=== PATIENT | male | born 1960 | race Caucasian/White ===

== ENCOUNTER 2017-10-05 01:15 | Inpatient (IN) | payer BC, OTHER ==
[2017-10-05] VITALS (8 sets, daily range): BP systolic 110–137; BP diastolic 71–89; PULSE 49–66; TEMP 36.5–36.8; O2SAT 93–96; Ht 180.3 cm; Wt 99.9 kg
[~2017-10-05] VITALS: Ht 180.3 cm; Wt 99.9 kg
[2017-10-05] MEDS ORDERED: ALUMINUM/MAGNESIUM SUSP 30 ML UDC PO STA (01:47)
[2017-10-05] MEDS ORDERED: LIDOCAINE HCL 2% VISC SOLN 20 ML UDC PO STA (01:47)
[2017-10-05] MEDS ORDERED: LORAZEPAM 2 MG/ML 1 ML VIAL IV STA (01:47)
[2017-10-05 02:07] LABS: BASO % 0.6 %; BASO ABS # 0.04 K/uL (0-0.2); EOS % 2.1 %; EOS ABS # 0.15 K/uL (0-0.5); HEMOGLOBIN 16.4 g/dL (14.0-18.0); IG# 0.01 K/uL (0.00-0.02); LYMPH % 30.7 %; LYMPH ABS # 2.15 K/uL (1.2-3.4); MEAN CELL VOLUME 95.3 fL (80-100); MEAN CORPUSCULAR HEMOGLOBIN 33.3 pg (25-34); MEAN CORPUSCULAR HGB CONC 34.9 g/dl (32-36); MEAN PLATELET VOLUME 11.2 fL (7.4-10.4); NEUT % 56.5 %; NEUT ABS # 3.95 K/uL (1.4-6.5); PLATELET COUNT 192 K/uL (130-400); RED CELL DISTRIBUTION WIDTH CV 14.2 % (11.5-14.5); RED CELL DISTRIBUTION WIDTH SD 48.9 fL (36.4-46.3)
--- NOTE | 2017-10-05 02:28 | EMERGENCY ROOM VISIT NOTE ---
History Report prepared by Christo: Tila Santamaria Under the Supervision of: Dr. Karon Bsuh D.O. First contact with patient: 01:31 Chief Complaint: SHORTNESS OF BREATH Stated Complaint: SHORTNESS OF BREATH-INSPIRATION DIFFICULTY History of Present Illness The patient is a 57 year old male who presents to the Emergency Room with complaints of persistent difficulty breathing that began tonight. The patient states that he woke up in the middle of the night, noting that he felt like he was suffocating and short of breath. He denies any chest pain. His states that she is a nurse and that she noticed an irregular heart beat. The patient states that he was recently diagnosed with PAC's during a routine visit. He considers himself a caffeine addict, noting that he did not have an abnormal amount of caffeine today. The patient states he had some alcohol, noting the last dose was about an hour before he went to bed. He reports that he does not feel stressed or overwhelmed. The patient notes a history of esophageal reflux and cervical fusion. He denies taking aspirin or being a smoker. Source of History: patient Onset: tonight Position: other (global) Quality: other (difficulty breathing) Timing: other (persistent) Associated Symptoms: + SOB Note: Associated symptoms include: felt like he was suffocating. Review of Systems See HPI for pertinent positives & negatives. A total of 10 systems reviewed and were otherwise negative. Past Medical & Surgical Medical Problems: (1) GERD (gastroesophageal reflux disease) (2) Low testosterone (3) Lumbar stenosis (4) NSTEMI (non-ST elevated myocardial infarction) Surgical Problems: (1) Previous back surgery Family History Diabetes mellitus Heart disease Hypertension Social History Smoking Status: Never Smoker Smokeless Tobacco Use: No Alcohol Use: occasionally Drug Use: none Marital Status: Housing Status: lives with family Occupation Status: employed Current/Historical Medications Scheduled Cetirizine Hcl (Zyrtec), 1 TAB PO DAILY Esomeprazole Magnesium (Nexium), 40 MG PO DAILY Finasteride (Proscar), 5 MG PO DAILY Gabapentin (Neurontin), 600 MG PO HS Multivitamin (Multivitamin), 1 TAB PO DAILY Ranitidine (Zantac), 150-300 MG PO DAILY Testosterone Cypionate (Testosterone Cypionate), 200 MG IM [id number] Scheduled PRN Doxepin Hcl (Doxepin), 50 MG PO QPM PRN for Sleep Valacyclovir Hcl (Valtrex), 1,000 MG PO DAILY PRN for as directed Allergies Coded Allergies: No Known Allergies (Unverified , 02/27/07) Physical Exam Vital Signs Date Time Temp Pulse Resp B/P (MAP) Pulse Ox O2 Delivery O2 Flow Rate FiO2 10/05/17 04:15 62 19 102/98 97 Nasal Cannula 2.0 10/05/17 03:33 67 123/70 96 Nasal Cannula 2.0 10/05/17 02:52 97 Nasal Cannula 2.0 10/05/17 02:42 66 19 122/72 98 Nasal Cannula Free Flow/Blowby 10/05/17 02:02 63 20 139/83 93 Room Air 10/05/17 01:38 71 22 139/83 97 Room Air 10/05/17 01:38 97 Room Air 10/05/17 01:30 71 10/05/17 01:20 36.6 59 16 136/85 96 Room Air Physical Exam HEENT: Head - normocephalic and atraumatic Pupils are equal, round, and reactive to light. Extraocular eye muscles are intact, and sclera are anicteric. Nose - moist nasal mucosa without discharge. Mouth - moist buccal mucosa. Oropharynx is nonerythematous and there is no tonsillar exudate or edema noted. Neck: Supple; no JVD, nuchal rigidity, cervical lymphadenopathy, or auscultated bruits. Heart: Regular rate and rhythm. There is a normal S1 and S2 with no murmurs, clicks, or gallops appreciated. Lungs: Clear to auscultation bilaterally with no wheezes, rales, or rhonchi. Abdomen: Soft, completely nontender, nondistended, with good bowel sounds. There are no palpable pulsatile masses or hepatosplenomegaly. There is no guarding, rigidity, or rebound noted. Extremities: No evidence of cyanosis, clubbing, or edema. There are easily palpable peripheral pulses. Skin: warm and dry with good turgor and no rashes. Medical Decision & Procedures ER Provider Diagnostic Interpretation: Chest x-ray results as stated below per interpretation by me and the radiologist : CHEST ONE VIEW PORTABLE HISTORY: 57 years-old Male chest heavy acute chest heaviness COMPARISON: None available TECHNIQUE: AP view of the chest FINDINGS: Cardiac silhouette is mildly enlarged. No pneumothorax, pleural effusion or overt pulmonary edema. Linear subsegmental left basilar opacities suggest atelectasis. No lobar airspace consolidation to suggest pneumonia. The bones of the chest appear grossly intact. IMPRESSION: No acute process. The above report was generated using voice recognition software. It may contain grammatical, syntax or spelling errors. Electronically signed by: Bladimir Caballero M.D. 10/05/2017 6:39 AM Dictated Date/Time: 10/05/2017 6:37 AM Laboratory Results 10/05/17 01:44 Red Blood Count 4.93, Mean Corpuscular Volume 95.3, Mean Corpuscular Hemoglobin 33.3, Mean Corpuscular Hemoglobin Concent 34.9, Mean Platelet Volume 11.2, Neutrophils (%) (Auto) 56.5, Lymphocytes (%) (Auto) 30.7, Monocytes (%) (Auto) 10.0, Eosinophils (%) (Auto) 2.1, Basophils (%) (Auto) 0.6, Neutrophils # (Auto ) 3.95, Lymphocytes # (Auto) 2.15, Monocytes # (Auto) 0.70, Eosinophils # (Auto ) 0.15, Basophils # (Auto) 0.04 Test 10/05/17 01:44 10/05/17 03:47 White Blood Count 7.00 K/uL (4.8-10.8) Red Blood Count 4.93 M/uL (4.7-6.1) Hemoglobin 16.4 g/dL (14.0-18.0) Hematocrit 47.0 % (42-52) Mean Corpuscular Volume 95.3 fL (80-100) Mean Corpuscular Hemoglobin 33.3 pg (25-34) Mean Corpuscular Hemoglobin Concent 34.9 g/dl (32-36) Platelet Count 192 K/uL (130-400) Mean Platelet Volume 11.2 fL (7.4-10.4) Neutrophils (%) (Auto) 56.5 % Lymphocytes (%) (Auto) 30.7 % Monocytes (%) (Auto) 10.0 % Eosinophils (%) (Auto) 2.1 % Basophils (%) (Auto) 0.6 % Neutrophils # (Auto) 3.95 K/uL (1.4-6.5) Lymphocytes # (Auto) 2.15 K/uL (1.2-3.4) Monocytes # (Auto) 0.70 K/uL (0.11-0.59) Eosinophils # (Auto) 0.15 K/uL (0-0.5) Basophils # (Auto) 0.04 K/uL (0-0.2) RDW Standard Deviation 48.9 fL (36.4-46.3) RDW Coefficient of Variation 14.2 % (11.5-14.5) Immature Granulocyte % (Auto) 0.1 % Immature Granulocyte # (Auto) 0.01 K/uL (0.00-0.02) Erythrocyte Sedimentation Rate 2 mm/hr (0-14) Prothrombin Time 10.1 SECONDS (9.0-12.0) Prothromb Time International Ratio 1.0 (0.9-1.1) Activated Partial Thromboplast Time 24.5 SECONDS (21.0-31.0) Partial Thromboplastin Ratio 0.9 D-Dimer 260 ug/L FEU (0-500) Total Bilirubin 0.3 mg/dl (0.2-1) Direct Bilirubin mg/dl (0-0.2) Aspartate Amino Transf (AST/SGOT) 29 U/L (15-37) Alanine Aminotransferase (ALT/SGPT) 35 U/L (12-78) Alkaline Phosphatase 47 U/L (45-117) C-Reactive Protein < 0.29 mg/dl (0-0.29) Total Protein 6.5 gm/dl (6.4-8.2) Albumin 3.4 gm/dl (3.4-5.0) Thyroid Stimulating Hormone (TSH) 1.810 uIu/ml (0.300-4.500) Chemistry Specimen Hemolysis Total Creatine Kinase 310 U/L (39-308) Creatine Kinase MB 4.0 ng/ml (0.5-3.6) Creatine Kinase MB Ratio 1.3 (0-3.0) Laboratory results per my review. Medications Administered Medications (Trade) Dose Ordered Sig/Margo Route Start Time Stop Time Status Last Admin Dose Admin Lidocaine HCl (Viscous Lidocaine 2% Soln) 10 ml NOW STAT PO 10/05/17 01:47 10/05/17 01:49 DC 10/05/17 01:52 10 ML Al Hydroxide/Mg Hydroxide (Maalox Susp) 30 ml NOW STAT PO 10/05/17 01:47 10/05/17 01:49 DC 10/05/17 01:52 30 ML Lorazepam (Ativan Inj) 1 mg NOW STAT IV 10/05/17 01:47 10/05/17 01:49 DC 10/05/17 02:58 1 MG Aspirin (Aspirin Chew) 324 mg NOW STAT PO 10/05/17 04:33 10/05/17 04:34 DC 10/05/17 05:42 324 MG Heparin Sodium/ Dextrose (Heparin 25,000 Unit/500ml D5W) 25,000 unit STK-MED ONCE .ROUTE 10/05/17 04:47 10/05/17 04:48 DC 10/05/17 05:45 25,000 UNIT Procedure 0147: Ordered Ativan Inj 1mg IV, Maalox Susp 30ml PO, and Lidocaine HCL 10ml PO. 0433: Ordered Aspirin 324mg PO. 0434: Ordered Heparin Sodium/Dextrose 1ea. ECG Indication: SOB/dyspnea Rate (beats per minute): 70 Rhythm: normal sinus Findings: PVC, no acute ischemic change ED Course 0135: Past medical records reviewed. The patient was evaluated in room A10. A complete history and physical exam was performed. A twelve-lead EKG was obtained as described above. IV lock was in place. The EKG was interpreted by me. He was observing the program counselor and pulse oximeter. 0147: Maalox Susp 30ml PO, and Lidocaine HCL 10ml PO. 0210: The patient had moderate relief of the chest discomfort with the GI cocktail however, he still feels as if he cannot take deep breath and feels somewhat anxious. He was given 1 mg of IV Ativan and had complete resolution of his symptoms. 0332: I reevaluated the patient and discussed some test findings. D-dimer was normal but the patient did have a slightly elevated troponin. Will repeat troponin. 0433: Ordered Aspirin 324mg PO. 0434: Ordered Heparin Sodium/Dextrose 1ea 0445: Discussed the patient's case with Sean Barba. The patient will be evaluated for further management. Medical Decision The patient is a 57 year old male who presents to the ED with persistent difficulty breathing. Differential diagnosis includes PE, anxiety, GERD, cardiac ischemia. Patient's laboratory studies revealed a mildly elevated point of care troponin at 0.050. Coag studies were normal. He had a d-dimer of 260. He had no leukocytosis and a stable H&H. Electrolytes were unremarkable. He had normal renal function glucose. The patient's repeated laboratory results showed: a total CK of 310, CK of 4.0, and troponin of 0.194. This is a 57-year-old male patient who woke from sleep with a sudden onset of shortness of breath as if he could not catch his breath. The patient's symptoms were relieved with a GI cocktail and Ativan. However, the patient had a troponin which increased on a second test. I discussed the case with the [facility] Hospitalist and they will evaluate for further management. The patient was given aspirin and heparin. He remained symptom-free at this time. Medication Reconcilliation Current Medication List: was personally reviewed by me Consults Time Called: [phone] Consulting Physician: Sean Barba Returned Call: [phone] Discussed the patient's case with Sean Barba. The patient will be evaluated for further management. . Impression Primary Impression: NSTEMI (non-ST elevated myocardial infarction) Critical Care I have personally spent greater than 45 minutes of critical care time in the direct management of this patient. This includes bedside care, interpretation of diagnostic studies, and testing, discussion with consultants, patient, and family members, and other required patient management activities. This 45 minutes is in excess of all separately billable procedures. Scribe Attestation The scribe's documentation has been prepared under my direction and personally reviewed by me in its entirety. I confirm that the note above accurately reflects all work, treatment, procedures, and medical decision making performed by me. Departure Information Dispostion Being Evaluated By Hospitalist Referrals No Doctor, Assigned (PCP) Forms HOME CARE DOCUMENTATION FORM, IMPORTANT VISIT INFORMATION Patient Instructions My [facility]
[2017-10-05 02:56] LABS: ALBUMIN 3.4 gm/dl (3.4-5.0); CALCIUM 8.1 mg/dl (8.5-10.1); CREATININE 1.07 mg/dl (0.60-1.40); POTASSIUM 3.5 mmol/L (3.5-5.1); TOTAL PROTEIN 6.5 gm/dl (6.4-8.2)
[2017-10-05] MEDS ORDERED: ASPIRIN 324 MG CHEW PO STA (04:33)
[2017-10-05] MEDS ORDERED: HEPARIN 25000 UNIT/500 ML D5W ONE (04:47)
[2017-10-05] MEDS ORDERED: FINA5TAB PO (05:08)
[2017-10-05] MEDS ORDERED: NXM/40 PO (05:09)
[2017-10-05] MEDS ORDERED: ZNTT/150 PO (05:09)
[2017-10-05] MEDS ORDERED: GABA600T PO (05:10)
[2017-10-05 05:11] LABS: PTT PATIENT 24.5 SECONDS (21.0-31.0)
[2017-10-05] MEDS ORDERED: MULT-506 PO (05:11)
[2017-10-05] MEDS ORDERED: DOXE100C4 PO (05:13)
[2017-10-05] MEDS ORDERED: IV FLUIDS COMPLETED PRN (05:30)
--- NOTE | 2017-10-05 06:40 | DIAGNOSTIC IMAGING REPORT ---
CHEST ONE VIEW PORTABLE HISTORY: 57 years-old Male chest heavy acute chest heaviness COMPARISON: None available TECHNIQUE: AP view of the chest FINDINGS: Cardiac silhouette is mildly enlarged. No pneumothorax, pleural effusion or overt pulmonary edema. Linear subsegmental left basilar opacities suggest atelectasis. No lobar airspace consolidation to suggest pneumonia. The bones of the chest appear grossly intact. IMPRESSION: No acute process. The above report was generated using voice recognition software. It may contain grammatical, syntax or spelling errors. Electronically signed by: Bladimir Caballero M.D. 10/05/2017 6:39 AM Dictated Date/Time: 10/05/2017 6:37 AM
[2017-10-05] MEDS ORDERED: POLYETHYLENE (MIRALAX) 17 GM PACK PO PRN (06:45)
[2017-10-05] MEDS ORDERED: MoRPHine SULFATE 2 MG/ML CARP IV PRN (06:45)
[2017-10-05] MEDS ORDERED: LORAZEPAM 0.5 MG TAB PO PRN (06:45)
[2017-10-05] MEDS ORDERED: NITROGLYCERIN 0.4 MG SL PER TAB CHARGE SL PRN (06:45)
[2017-10-05] MEDS ORDERED: ONDANSETRON INJ 2 MG/ML 2 ML VIAL IV PRN (06:45)
[2017-10-05] MEDS ORDERED: ACETAMINOPHEN 325 MG TAB PO PRN (06:45)
[2017-10-05] MEDS ORDERED: GI COCKTAIL PO PRN (06:45)
[2017-10-05] MEDS ORDERED: CETI10TA10 PO (06:47)
[2017-10-05] MEDS ORDERED: VALA500T39 PO (06:47)
[2017-10-05] MEDS ORDERED: TEST1INJ2 IM (06:47)
--- NOTE | 2017-10-05 06:55 | History and Physical ---
History & Physical Date & Time of Service: Oct 05, 2017 at 06:48 Chief Complaint: Shortness Of Breath-Inspiration Difficulty Primary Care Physician: Jerry Davis M.D. 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 He works out daily and has no issues. He has an early family h/o heart disease in his brother who received a stent at 50 yrs old. He has no HTN and is otherwise healthy. He denies any recent issues with SOB. He admits to the pain waking him up from sleep and feels like he was suffocating. His noted an irregular heart rate and on his EKG there were frequent PVCs noted. He is an avid caffeine user. He reports feeling very panicky because he realized he make be having an [place] and took one of his 's Lopressor (50mg) which made him feel somewhat better. He denies associated symptoms with the pain but this is unclear because of how panicked he became. In the ER he was given ASA 324, Viscous lidocaine, Maalox and Ativan and states this all tok his chest pressure from a 10 to a 1 now. Workup reveals no ST changes on EKG and an elevated trop at 0.19. He was started on a heparin drip. Past Medical/Surgical History Medical Problems: (1) GERD (gastroesophageal reflux disease) Status: Chronic (2) Low testosterone Status: Chronic (3) Lumbar stenosis Status: Chronic Surgical Problems: (1) Previous back surgery Status: Resolved Family History Diabetes mellitus Heart disease Hypertension Social History Smoking Status: Never Smoker Smokeless Tobacco Use: No Alcohol Use: socially Drug Use: none Marital Status: Occupational Status: employed Immunizations History of Influenza Vaccine: Unknown History of Tetanus Vaccine?: Unknown History of Pneumococcal: Unknown History of Hepatitis B Vaccine: Unknown Multi-Drug Resistant Organisms History of MDRO: No Allergies Coded Allergies: No Known Allergies (Unverified , 02/27/07) Home Medications Scheduled Cetirizine Hcl (Zyrtec), 1 TAB PO DAILY Esomeprazole Magnesium (Nexium), 40 MG PO DAILY Finasteride (Proscar), 5 MG PO DAILY Gabapentin (Neurontin), 600 MG PO HS Multivitamin (Multivitamin), 1 TAB PO DAILY Ranitidine (Zantac), 150-300 MG PO DAILY Testosterone Cypionate (Testosterone Cypionate), 200 MG IM [id number] Scheduled PRN Doxepin Hcl (Doxepin), 50 MG PO QPM PRN for Sleep Valacyclovir Hcl (Valtrex), 1,000 MG PO DAILY PRN for as directed Review of Systems At least ten systems were reviewed and negative except as indicated in HPI above. Physical Exam Vital Signs Date Time Temp Pulse Resp B/P (MAP) Pulse Ox O2 Delivery O2 Flow Rate FiO2 10/05/17 06:37 66 19 121/66 95 Room Air 10/05/17 06:00 62 102/68 10/05/17 05:28 64 10/05/17 04:15 62 19 102/98 97 Nasal Cannula 2.0 10/05/17 03:33 67 123/70 96 Nasal Cannula 2.0 10/05/17 02:52 97 Nasal Cannula 2.0 10/05/17 02:42 66 19 122/72 98 Nasal Cannula Free Flow/Blowby 10/05/17 02:02 63 20 139/83 93 Room Air 10/05/17 01:38 71 22 139/83 97 Room Air 10/05/17 01:38 97 Room Air 10/05/17 01:30 71 10/05/17 01:20 36.6 59 16 136/85 96 Room Air General Appearance: WD/WN, + mild distress (emotional distress), + pertinent finding (talkative) Head: normocephalic, atraumatic Eyes: normal inspection, PERRL, sclerae normal ENT: normal ENT inspection, hearing grossly normal, pharynx normal, + pertinent finding (MMM) Neck: supple, no adenopathy, trachea midline Respiratory/Chest: lungs clear, normal breath sounds, no respiratory distress, no accessory muscle use Cardiovascular: regular rate, rhythm, no edema, no gallop, no JVD, no murmur, normal peripheral pulses Abdomen/GI: normal bowel sounds, non tender, soft, no organomegaly Back: normal inspection Extremities/Musculoskelatal: normal inspection Neurologic/Psych: sighter II-XII nml as tested, no motor/sensory deficits, alert, normal mood/affect, oriented x 3 Skin: normal color, warm/dry Diagnostics Laboratory Results 10/05/17 01:44 Red Blood Count 4.93, Mean Corpuscular Volume 95.3, Mean Corpuscular Hemoglobin 33.3, Mean Corpuscular Hemoglobin Concent 34.9, Mean Platelet Volume 11.2, Neutrophils (%) (Auto) 56.5, Lymphocytes (%) (Auto) 30.7, Monocytes (%) (Auto) 10.0, Eosinophils (%) (Auto) 2.1, Basophils (%) (Auto) 0.6, Neutrophils # (Auto ) 3.95, Lymphocytes # (Auto) 2.15, Monocytes # (Auto) 0.70, Eosinophils # (Auto ) 0.15, Basophils # (Auto) 0.04 10/05/17 01:44 Test 10/05/17 01:44 10/05/17 03:47 10/05/17 09:25 10/05/17 09:42 White Blood Count 7.00 K/uL (4.8-10.8) Red Blood Count 4.93 M/uL (4.7-6.1) Hemoglobin 16.4 g/dL (14.0-18.0) Hematocrit 47.0 % (42-52) Mean Corpuscular Volume 95.3 fL (80-100) Mean Corpuscular Hemoglobin 33.3 pg (25-34) Mean Corpuscular Hemoglobin Concent 34.9 g/dl (32-36) Platelet Count 192 K/uL (130-400) Mean Platelet Volume 11.2 fL (7.4-10.4) Neutrophils (%) (Auto) 56.5 % Lymphocytes (%) (Auto) 30.7 % Monocytes (%) (Auto) 10.0 % Eosinophils (%) (Auto) 2.1 % Basophils (%) (Auto) 0.6 % Neutrophils # (Auto) 3.95 K/uL (1.4-6.5) Lymphocytes # (Auto) 2.15 K/uL (1.2-3.4) Monocytes # (Auto) 0.70 K/uL (0.11-0.59) Eosinophils # (Auto) 0.15 K/uL (0-0.5) Basophils # (Auto) 0.04 K/uL (0-0.2) RDW Standard Deviation 48.9 fL (36.4-46.3) RDW Coefficient of Variation 14.2 % (11.5-14.5) Immature Granulocyte % (Auto) 0.1 % Immature Granulocyte # (Auto) 0.01 K/uL (0.00-0.02) Prothrombin Time 10.1 SECONDS (9.0-12.0) Prothromb Time International Ratio 1.0 (0.9-1.1) Activated Partial Thromboplast Time 24.5 SECONDS (21.0-31.0) Partial Thromboplastin Ratio 0.9 D-Dimer 260 ug/L FEU (0-500) Anion Gap 11.0 mmol/L (3-11) Est Creatinine Clear Calc Drug Dose 90.8 ml/min Estimated GFR () 88.2 Estimated GFR (Non- 76.1 BUN/Creatinine Ratio 18.7 (10-20) Calcium Level 8.1 mg/dl (8.5-10.1) Total Bilirubin 0.3 mg/dl (0.2-1) Direct Bilirubin mg/dl (0-0.2) Aspartate Amino Transf (AST/SGOT) 29 U/L (15-37) Alanine Aminotransferase (ALT/SGPT) 35 U/L (12-78) Alkaline Phosphatase 47 U/L (45-117) Total Protein 6.5 gm/dl (6.4-8.2) Albumin 3.4 gm/dl (3.4-5.0) Thyroid Stimulating Hormone (TSH) 1.810 uIu/ml (0.300-4.500) Chemistry Specimen Hemolysis Total Creatine Kinase 310 U/L (39-308) Creatine Kinase MB 4.0 ng/ml (0.5-3.6) Creatine Kinase MB Ratio 1.3 (0-3.0) Bedside Troponin I 0.060 ng/ml (0-0.045) Troponin I 0.203 ng/ml (0-0.045) Results Past 24 Hours Test 10/05/17 01:44 10/05/17 01:51 10/05/17 03:47 Range/Units White Blood Count 7.00 4.8-10.8 K/uL Red Blood Count 4.93 4.7-6.1 M/uL Hemoglobin 16.4 14.0-18.0 g/dL Hematocrit 47.0 42-52 % Mean Corpuscular Volume 95.3 80-100 fL Mean Corpuscular Hemoglobin 33.3 25-34 pg Mean Corpuscular Hemoglobin Concent 34.9 32-36 g/dl Platelet Count 192 130-400 K/uL Mean Platelet Volume 11.2 7.4-10.4 fL Neutrophils (%) (Auto) 56.5 % Lymphocytes (%) (Auto) 30.7 % Monocytes (%) (Auto) 10.0 % Eosinophils (%) (Auto) 2.1 % Basophils (%) (Auto) 0.6 % Neutrophils # (Auto) 3.95 1.4-6.5 K/uL Lymphocytes # (Auto) 2.15 1.2-3.4 K/uL Monocytes # (Auto) 0.70 0.11-0.59 K/uL Eosinophils # (Auto) 0.15 0-0.5 K/uL Basophils # (Auto) 0.04 0-0.2 K/uL RDW Standard Deviation 48.9 36.4-46.3 fL RDW Coefficient of Variation 14.2 11.5-14.5 % Immature Granulocyte % (Auto) 0.1 % Immature Granulocyte # (Auto) 0.01 0.00-0.02 K/uL Prothrombin Time 10.1 9.0-12.0 SECONDS Prothromb Time International Ratio 1.0 0.9-1.1 Activated Partial Thromboplast Time 24.5 21.0-31.0 SECONDS Partial Thromboplastin Ratio 0.9 D-Dimer 260 0-500 ug/L FEU Sodium Level 137 136-145 mmol/L Potassium Level 3.5 3.5-5.1 mmol/L Chloride Level 102 98-107 mmol/L Carbon Dioxide Level 24 21-32 mmol/L Anion Gap 11.0 3-11 mmol/L Blood Urea Nitrogen 20 7-18 mg/dl Creatinine 1.07 0.60-1.40 mg/dl Est Creatinine Clear Calc Drug Dose 90.8 ml/min Estimated GFR () 88.2 Estimated GFR (Non- 76.1 BUN/Creatinine Ratio 18.7 10-20 Random Glucose 115 70-99 mg/dl Calcium Level 8.1 8.5-10.1 mg/dl Total Bilirubin 0.3 0.2-1 mg/dl Direct Bilirubin 0-0.2 mg/dl Aspartate Amino Transf (AST/SGOT) 29 15-37 U/L Alanine Aminotransferase (ALT/SGPT) 35 12-78 U/L Alkaline Phosphatase 47 45-117 U/L Total Protein 6.5 6.4-8.2 gm/dl Albumin 3.4 3.4-5.0 gm/dl Thyroid Stimulating Hormone (TSH) 1.810 0.300-4.500 uIu/ml Chemistry Specimen Hemolysis Bedside Troponin I 0.050 0-0.045 ng/ml Total Creatine Kinase 310 39-308 U/L Creatine Kinase MB 4.0 0.5-3.6 ng/ml Creatine Kinase MB Ratio 1.3 0-3.0 Troponin I 0.194 0-0.045 ng/ml Diagnostic Radiology CHEST ONE VIEW PORTABLE HISTORY: 57 years-old Male chest heavy acute chest heaviness COMPARISON: None available TECHNIQUE: AP view of the chest FINDINGS: Cardiac silhouette is mildly enlarged. No pneumothorax, pleural effusion or overt pulmonary edema. Linear subsegmental left basilar opacities suggest atelectasis. No lobar airspace consolidation to suggest pneumonia. The bones of the chest appear grossly intact. IMPRESSION: No acute process. EKG sinus rhythm, frequent PVCs. Impression Assessment and Plan 57 yo M with out h/o CAD, nonsmoker with early family heart disease presents with acute chest pain. 1. NSTEMI-heparin drip, Lip 80, ASA, Metoprolol 12.5 BID added. Ativan PRN for anxiety. Cards consult. Trend trops. Lipids ordered. Monitor on telemetry. Defer TTE order to them. 2. GERD-controlled on PPI. Has h/o sylvia esophagitis in distant past. Reports recent EGD 4 years ago was normal. 3. Alopecia-finasteride DVT proph-heparin drip Full Code Dispo-to telemetry for cardiac evaluation. Silke Medina DO [facility] Level of Care Telemetry Resuscitation Status FULL RESUSCITATION VTE Prophylaxis VTE Risk Assessment Done? Y/N: Yes Risk Level: Moderate Given or contraindicated: Other Anticoagulation
[2017-10-05] MEDS ORDERED: ALUMINUM/MAGNESIUM SUSP 18 ML, LIDOCAINE HCL 2% VISCOUS SOLN 6 ML, BARCODE IDENTIFIER 1 EA PO PRN ×2 (07:45)
[2017-10-05] MEDS ORDERED: HEPARIN 25,000 UNIT/500ML D5W 500 ML IV PRN (08:45)
[2017-10-05] MEDS: MULTIVITAMIN TAB PO SCH (09:00)
[2017-10-05] MEDS: PANTOprazole SOD 40 MG TAB PO SCH (09:00)
[2017-10-05] MEDS: ASPIRIN 81 MG ECTAB PO SCH (09:00)
[2017-10-05] MEDS ORDERED: MIDAZOLAM HCL 1 MG/ML 2ML VIAL ONE ×2 (09:39→10:08)
[2017-10-05] MEDS ORDERED: HEPARIN SOD (PORCINE) 1000 UNIT/ML 10 ML VIAL ONE (09:39)
[2017-10-05] MEDS ORDERED: FENTANYL CITRATE INJ 50 MCG/1 ML 2 ML VIAL ONE ×2 (09:39→10:09)
[2017-10-05] MEDS ORDERED: NiCARDipine HCL INJ 2.5 MG/ML 10 ML AMP ONE (09:39)
[2017-10-05] MEDS ORDERED: NITROGLYCERIN/D5W 100MCG/ML 20ML SYR ONE (09:41)
--- NOTE | 2017-10-05 09:57 | Cardiology Consultation ---
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 He notes feeling in his normal state of health last night and went to bed feeling well. He awoke with severe chest pressure and shortness of breath, feeling like he was suffocating at just after midnight. His symptoms persisted and he presented to the ED. Initial EKG in ED at 1:24 am revealed sinus rhythm with PVCs and no significant ST changes. POC troponin was mildly elevated at 0.05 ng/ml and then 0.194 ng/ml on repeat. Symptoms improved after ativan and aspirin. [facility] was initiated. While awaiting a telemetry bed , he remained in the ED and had recurrence of his symptoms at 830 am. He ultimately described this to his nurse and I came assess him in room A10. Repeat EKG revels SR at 78 bpm with PVCs, very subtle lateral J point elevation that does not meet definite criteria for STEMI. State echo performed at bedside revealing normal LVEF and normal LV wall motion with mild MR. Past Medical/Surgical History Problem List: Medical Problems: (1) GERD (gastroesophageal reflux disease) (2) Low testosterone (3) Lumbar stenosis History Past Medical History: 1. PACs or PVCs noted during life insurance examination 2. 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 Non smoker. Exercises regularly Family History: Brother with Stent to the LAD at age 50 Review Of Systems See above for pertinent positives & negatives. A total of 10 systems reviewed and were otherwise negative. Allergies Coded Allergies: No Known Allergies (Unverified , 02/27/07) Medications Reported Home Medications Medications Dose Route/Sig Max Daily Dose Days Date Category Zyrtec (Cetirizine Hcl) 10 Mg Tab 1 Tab PO DAILY 30 10/05/17 Reported Testosterone Cypionate 200 Mg/Ml Inj 200 Mg IM [id number] 10/05/17 Reported Valtrex (Valacyclovir Hcl) 500 Mg Tab 1,000 Mg PO DAILY PRN 30 10/05/17 Reported Doxepin (Doxepin Hcl) 100 Mg Cap 50 Mg PO QPM PRN 10/05/17 Reported Multivitamin (Multivitamins) Tab 1 Tab PO DAILY 10/05/17 Reported Neurontin (Gabapentin) 600 Mg Tab 600 Mg PO HS 10/05/17 Reported Zantac (Ranitidine HCl) 150 Mg Tab 150-300 Mg PO DAILY 10/05/17 Reported Nexium (Esomeprazole Magnesium) 40 Mg Capcr 40 Mg PO DAILY 10/05/17 Reported Proscar (Finasteride) 5 Mg Tab 5 Mg PO DAILY 10/05/17 Reported Physical Exam Vital Signs (Last 8hrs): Last 8 Hrs Date Time Temp Pulse Resp B/P (MAP) Pulse Ox O2 Delivery O2 Flow Rate FiO2 10/05/17 07:30 67 18 122/70 98 Room Air 10/05/17 06:37 66 19 121/66 95 Room Air 10/05/17 06:00 62 102/68 10/05/17 05:28 64 10/05/17 04:15 62 19 102/98 97 Nasal Cannula 2.0 10/05/17 03:33 67 123/70 96 Nasal Cannula 2.0 10/05/17 02:52 97 Nasal Cannula 2.0 10/05/17 02:42 66 19 122/72 98 Nasal Cannula Free Flow/Blowby 10/05/17 02:02 63 20 139/83 93 Room Air General Appearance: Alert and Oriented x3. NAD. Head: Normocephalic Atraumatic. Eyes: PERRLA, EOMI, conjunctiva and sclera clear Neck: Supple. No carotid bruits noted. No JVD. No HJD. Respiratory: Breath sounds clear to auscultation bilaterally. No w/r/r. Cardiovascular: Reg rate and rhythm. S1 and S2 noted. No murmurs, rubs, gallops. PMI non displace. Abdomen: Normal bowel sounds, soft nontender. no abdominal bruits. Extremities: No edema, no clubbing or cyanosis. distal pulses 2/4 bilaterally. Neuro: No focal deficits. Psychiatric: Normal affect. Data Last Resulted 10/05/17 01:44 Red Blood Count 4.93, Mean Corpuscular Volume 95.3, Mean Corpuscular Hemoglobin 33.3, Mean Corpuscular Hemoglobin Concent 34.9, Mean Platelet Volume 11.2, Neutrophils (%) (Auto) 56.5, Lymphocytes (%) (Auto) 30.7, Monocytes (%) (Auto) 10.0, Eosinophils (%) (Auto) 2.1, Basophils (%) (Auto) 0.6, Neutrophils # (Auto ) 3.95, Lymphocytes # (Auto) 2.15, Monocytes # (Auto) 0.70, Eosinophils # (Auto ) 0.15, Basophils # (Auto) 0.04 Last Resulted 10/05/17 01:44 Past 24 Hours Test 10/05/17 01:44 10/05/17 03:47 10/05/17 09:42 Range/Units Prothromb Time International Ratio 1.0 0.9-1.1 Prothrombin Time 10.1 9.0-12.0 SECONDS Creatine Kinase MB 4.0 H 0.5-3.6 ng/ml Creatine Kinase MB Ratio 1.3 0-3.0 Total Creatine Kinase 310 H 39-308 U/L Troponin I 0.194 *H 0-0.045 ng/ml EKG tracings as outlined above. Assessment & Plan Impression: 57 year old male 1. NSTEMI, recurrent crescendo angina symptoms this am 2. Family history of CAD Recommendations: Given the nature of his chest pain. I have activated the "heart alert" protocol for urgent cardiac catheterization. Discussed cased in ED with Dr Jaramillo of interventional cardiology who met me at the bedside. Patient has received ASA and heparin. Metoprolol and atorvastatin already ordered by admitting team. Patient has no known bleeding problems or anticipated upcoming operations and is considered a drug eluting stent candidate.
[2017-10-05] MEDS ORDERED: OPTIRAY 320 IV PRN (10:45)
--- NOTE | 2017-10-05 11:35 | Pre Sedation Assessment ---
Pre Sedation Assessment General Date of Sedation: Oct 05, 2017. Vital Signs Past 12 Hours Date Time Temp Pulse Resp B/P (MAP) Pulse Ox O2 Delivery O2 Flow Rate FiO2 10/05/17 11:10 71 16 115/65 (82) 97 Room Air 6 10/05/17 10:55 73 16 132/52 (78) 97 Room Air 6 10/05/17 10:40 61 16 136/55 (82) 97 Room Air 6 10/05/17 10:25 70 16 140/84 (102) 97 Room Air 6 10/05/17 09:38 80 18 149/91 98 10/05/17 09:31 130/78 10/05/17 09:30 78 22 97 10/05/17 09:15 71 15 10/05/17 09:01 127/79 10/05/17 09:00 80 16 10/05/17 08:45 74 18 10/05/17 08:30 71 23 10/05/17 08:15 53 15 93 10/05/17 08:01 121/93 10/05/17 08:00 63 23 93 10/05/17 07:30 67 18 122/70 98 Room Air 10/05/17 06:37 66 19 121/66 95 Room Air 10/05/17 06:00 62 102/68 10/05/17 05:28 64 10/05/17 04:15 62 19 102/98 97 Nasal Cannula 2.0 10/05/17 03:33 67 123/70 96 Nasal Cannula 2.0 10/05/17 02:52 97 Nasal Cannula 2.0 10/05/17 02:42 66 19 122/72 98 Nasal Cannula Free Flow/Blowby 10/05/17 02:02 63 20 139/83 93 Room Air 10/05/17 01:38 71 22 139/83 97 Room Air 10/05/17 01:38 97 Room Air 10/05/17 01:30 71 10/05/17 01:20 36.6 59 16 136/85 96 Room Air Review Cardiovascular: regular rate, rhythm, no edema Lungs: chest non-tender, lungs clear Pre-Sedation Airway Assessment Smoking Status: Never Smoker Hx of Sleep Apnea: No Hx of difficult intubation: No Short Thick Neck: No Thyro-mental Distance: > 3 Finger Breadths Oral Cavity: WNL Mallampati Classification: Class II ASA Classification: Class II Procedure Planning Contraindications for Sedation: None Current Medications Reviewed: Yes Notes The planned sedation has been discussed with the patient. Informed Consent was obtained. I have identified the patient, determined the appropriateness of sedation and have assessed the patient immediately prior to the procedure. All medicine(s) and interventions are by my order.
--- NOTE | 2017-10-05 11:36 | DIAGNOSTIC IMAGING REPORT ---
CT ANGIOGRAM OF THE CHEST CLINICAL HISTORY: Dyspnea. Atypical chest pain. COMPARISON STUDY: Chest x-ray dated 10/05/2017. TECHNIQUE: Following the IV administration of 94 cc of Optiray 320, CT angiogram of the chest was performed from the upper abdomen to the thoracic inlet utilizing the pulmonary embolus protocol. Images are reviewed in the axial, sagittal, and coronal planes. 3-D MIPS images are created and assessed. IV contrast was administered without complication. A dose lowering technique was utilized adhering to the principles of ALARA. The examination is modestly compromised by motion artifact. CT DOSE: 623.09 mGy.cm FINDINGS: Thyroid: Imaged portions of the thyroid gland are normal in size and attenuation. Thoracic aorta: The thoracic aorta is normal in caliber and demonstrates bovine variant arch anatomy. The thoracic aorta is suboptimally opacified. Pulmonary vasculature: The main pulmonary arteries are mildly dilated suggesting pulmonary artery hypertension. There are no filling defects identified in main, lobar, or proximal segmental pulmonary branches to suggest pulmonary embolus. Evaluation of the peripheral branches is degraded by motion artifact. Heart: The heart is enlarged and there is trace pericardial fluid. There are scattered coronary artery calcifications. Lungs and pleural spaces: Evaluation of the lung parenchyma is degraded by motion artifact. There is no airspace consolidation or pleural effusion. Dependent atelectasis is identified. The trachea and central airways are clear. Mediastinum: There is no mediastinal lymphadenopathy. Funmi: Clear. Axillae: There is no axillary lymphadenopathy. Upper abdomen: A 2.1 cm cyst is seen in the left lobe of the liver. Excreted contrast is noted within the partially imaged left renal collecting system. A tiny hiatal hernia is identified. Skeletal structures: No lytic or blastic bony lesions are seen. Fusion hardware is seen in the lower cervical region. IMPRESSION: 1. There is no evidence of pulmonary embolus in the main, lobar, or proximal segmental pulmonary arteries. 2. Cardiomegaly. 3. There is no airspace consolidation or pleural effusion. Electronically signed by: Jostin Luz M.D. 10/05/2017 11:35 AM Dictated Date/Time: 10/05/2017 11:30 AM
--- NOTE | 2017-10-05 11:36 | Post Sedation Assessment ---
Post Sedation Assessment General Date of Sedation Oct 05, 2017. Vital Signs: Vital Signs Past 12 Hours Date Time Temp Pulse Resp B/P (MAP) Pulse Ox O2 Delivery O2 Flow Rate FiO2 10/05/17 11:10 71 16 115/65 (82) 97 Room Air 6 10/05/17 10:55 73 16 132/52 (78) 97 Room Air 6 10/05/17 10:40 61 16 136/55 (82) 97 Room Air 6 10/05/17 10:25 70 16 140/84 (102) 97 Room Air 6 10/05/17 09:38 80 18 149/91 98 10/05/17 09:31 130/78 10/05/17 09:30 78 22 97 10/05/17 09:15 71 15 10/05/17 09:01 127/79 10/05/17 09:00 80 16 10/05/17 08:45 74 18 10/05/17 08:30 71 23 10/05/17 08:15 53 15 93 10/05/17 08:01 121/93 10/05/17 08:00 63 23 93 10/05/17 07:30 67 18 122/70 98 Room Air 10/05/17 06:37 66 19 121/66 95 Room Air 10/05/17 06:00 62 102/68 10/05/17 05:28 64 10/05/17 04:15 62 19 102/98 97 Nasal Cannula 2.0 10/05/17 03:33 67 123/70 96 Nasal Cannula 2.0 10/05/17 02:52 97 Nasal Cannula 2.0 10/05/17 02:42 66 19 122/72 98 Nasal Cannula Free Flow/Blowby 10/05/17 02:02 63 20 139/83 93 Room Air 10/05/17 01:38 71 22 139/83 97 Room Air 10/05/17 01:38 97 Room Air 10/05/17 01:30 71 10/05/17 01:20 36.6 59 16 136/85 96 Room Air Post Procedure Recovery Score Activity: (2) Moves 4 extremities * Respiration: (2) Deep breath/cough Circulation: (2) +/-20% PreAnes Value Consciousness: (2) Fully Awake Oxygen Saturation: (2) > 92% On Room Air Post Anesthesia Score: 10 Discharge Sedation Level of Care: Fast Track Phase II Post Sedation Plan On clinical assessment, the patient appears to have tolerated the sedation without complications. Patient is recovering as anticipated. Patient will continue to be monitored by nursing and may be discharged when sedation discharge criteria are met per below protocol. Upon Completions of procedure and additional 15 minutes continue every 5 minute vital signs and the P.A.R. score; then discharge to a Phase I or Fast Track to Phase II per the following guidelines: * Discharge Patient to appropriate Phase II area if PAR is 8 or greater or return to pre- procedure baseline. The post - procedure orders will be as directed. * If PAR score is less than 8 or not return to pre-procedure baseline then patient will follow Phase I monitoring till PAR is reached for Phase II. The Phase I may be done in procedure room or may call to secure a Phase I area. * If naloxone or flumazenil are used for reversal, hold in Phase I for an additional 60 -120 minutes before discharge to Phase II. Please call the Sedation Physician to re-evaluate and complete post-note for discharge to Phase II area. Do NOT discharge from procedure sedation or Phase 1 until post- sedation evaluation note is complete by procedure /sedation MD Sedation Discharge Instructions to be given to the patient at discharge to home.
--- NOTE | 2017-10-05 11:46 | Cardiac Catheterization ---
Procedure Note Procedure Date Oct 05, 2017. Pre-Procedure Diagnosis Non STEMI AUC Score 8 Post-Procedure Diagnosis Normal Intracardiac Pressures Procedure(s) Performed Coronary Angiography, Left Heart Cath [employer] Supervisor Clint De Icer Finisher(s) Jorge Estimated Blood Loss 5 Medication(s) Fentanyl, Heparin, Nitroglycerin, Versed, Lidocaine 1% Summary of Findings Indication: NSTEMI Access: 6Fr right radial artery Catheters: Warrior, JR4, AR1 Findings: LM - Angiographically normal LAD - Large vessel, angiographically normal, sluggish flow in distal vessel Circumflex - Angiographically normal RCA - Dominant, tapers in the mid segment but no focal disease. LVEDP - 15 Arterial Closure: TR Band Summary: 1. Minimal non-obstructive coronary artery disease 2. Normal intracardiac filling pressure Recommendations: Further evaluation for non-cardiac causes of symptoms/mild troponin elevation per Dr. Soto Continued ASCVD risk factor modification Hemodynamics Rest Ao: 106/69/89 Final Ao: 121/76/98 LV: 117/16 Recommendations Medical therapy and/or Counseling Specimens None Radiation Exposure (mGy) 2030 Contrast (mls) 90 Fluids (cc crystalloids) 40 Drains None Anesthesia Moderate Procedural Complication(s) None Disposition PCU ACC Data Cardiac Status Clinical evaluation leading to the procedure CAD Presntation: Non STEMI Anginal Classification: CCS IV Heart Failure: No, NYHA Class: CCS I Cardiogenic Shock w/in 24Hrs: No Cardiac Arrest w/in 24Hrs: No Imaging studies past 6 months: Yes Stress studies past 6 months: No Closure Device Percutaneous Entry Location: Radial Closure Device: Radial Band Recommendations: Medical therapy and/or Counseling Intraprocedure Events Significant Dissection: No Perforation: No
--- NOTE | 2017-10-05 13:17 | Cardiology Progress Note ---
Cardiology Progress Note Date of Service Oct 05, 2017. Cardiology Progress Note Cardiac cath without coronary culprit. CTA with no evidence of PE. ESR normal. Pt's presenting symptom was profound chest pressure , shortness of breath, like he was going to suffocate. Symptoms not suggestive of aortic dissection. I spoke to pt post cath and post CT scan. He was off of heparin at that time, with hemo band on R Radial artery cath site. He was feeling well with NO symptoms at that time. Normal ESR would suggest against pericarditis. Possibly had coronary spasm, or transient coronary occlusion with spontaneous recanalization. Will continue to follow .
[2017-10-05] MEDS ORDERED: METOPROLOL TARTRATE 25 MG TAB PO SCH (14:00)
[2017-10-05] MEDS ORDERED: ATORVASTATIN 40 MG TAB PO SCH (14:00)
[2017-10-05] MEDS ORDERED: POTASSIUM CHLORIDE 10 MEQ TABCR PO ONE (15:30)
[2017-10-05] MEDS ORDERED: AMLODIPINE BESYLATE 5 MG TAB PO ONE (15:30)
[2017-10-05] MEDS ORDERED: METOPROLOL TARTRATE 25 MG TAB PO ONE (15:30)
[2017-10-05] MEDS ORDERED: ATORVASTATIN 40 MG TAB PO ONE (15:30)
--- NOTE | 2017-10-05 16:00 | ECHOCARDIOGRAM REPORT ---
*NOTICE TO RECEIVING LIBERTARIAN AGENCY This information is strictly Confidential and protected under [place] law. [place] law prohibits you from making any further disclosure of this information unless further disclosure is expressly permitted by the written consent of the person to whom it pertains or is authorized by law. A general authorization for the release of medical or other information is not sufficient for this purpose. Hospital accepts no responsibility if the information is made available to any other person, INCLUDING THE PATIENT. Interpretation Summary * Name: RUSSELL ESQUEDA Study Date: 10/05/2017 09:14 AM BP: 149/91 mmHg * Patient [facility]: [facility] HR: 80 * : 1960 (M/d/yyyy) Gender: Male Height: 71 in * Age: 57 yrs Ethnicity: [place] Weight: 221 lb * Ordering Physician: Carlos Enrique Soto * Referring Physician: Self, Referred * Performed By: Ramsey Coleman RCS * * Reason For Study: [place] * BSA: 2.2 m2 * The study was technically adequate. * -- Conclusions -- * Sinus rhythm with frequent PVCs noted during the echocardiogram. * The left ventricular wall motion is normal. * Left ventricular systolic function is normal. * The LV Ejection Fraction = 55-60%. * There is trace mitral regurgitation. * Doppler findings do not suggest pulmonary hypertension. * There is no pericardial effusion. Procedure Details * A complete two-dimensional transthoracic echocardiogram was performed (2D, M-mode, Doppler and color flow Doppler). Left Ventricle * The left ventricle is normal in size. * There is borderline concentric left ventricular hypertrophy. * Left ventricular systolic function is normal. * Ejection Fraction = 55-60%. * The left ventricular wall motion is normal. Right Ventricle * The right ventricle is normal size. * The right ventricular systolic function is normal as assessed by tricuspid annular plane systolic excursion (TAPSE) (normal >1.5 cm). Atria * The left atrial size is normal. * Right atrial size is normal. * There is no evidence of atrial septal defect, but resolution does not allow assessment for a patent foramen ovale. Mitral Valve * The mitral valve is normal. * There is no mitral valve stenosis. * There is trace mitral regurgitation. Tricuspid Valve * The tricuspid valve is normal. * There is no tricuspid stenosis. * Significant tricuspid regurgitation is absent. * Doppler findings do not suggest pulmonary hypertension. Aortic Valve * The aortic valve is trileaflet. * Aortic stenosis is absent. * There is no significant aortic regurgitation. Pulmonic Valve * The pulmonary valve is not well seen, but the Doppler examination is normal without significant regurgitation or stenosis. Great Vessels * The aortic root and proximal ascending aorta are normal sized. Pericardium/Pleural * There is no pericardial effusion. Great Vessels * Normal inferior vena cava size and collapsability with sniff indicates a normal right atrial pressure of 3 mmHg Left Ventricular Diastolic Function * The LV diastolic function is normal. MMode 2D Measurements and Calculations IVSd 1.1 cm IVSs 1.3 cm LVIDd 5.4 cm LVIDs 3.6 cm LVPWd 1.1 cm LVPWs 1.7 cm IVS/LVPW 1.0 FS 32.3 % EDV(Teich) 140.0 ml ESV(Teich) 56.0 ml EF(Teich) 60.0 % EDV(cubed) 155.5 ml ESV(cubed) 48.3 ml EF(cubed) 68.9 % % IVS thick 17.5 % % LVPW thick 51.3 % LV mass(C)d 236.5 grams LV mass(C)dI 107.5 grams/m\S\2 LV mass(C)s 202.4 grams LV mass(C)sI 92.0 grams/m\S\2 SV(Teich) 84.0 ml SI(Teich) 38.2 ml/m\S\2 SV(cubed) 107.2 ml SI(cubed) 48.7 ml/m\S\2 Ao root diam 3.9 cm Ao root area 12.0 cm\S\2 ACS 1.8 cm LA dimension 3.8 cm asc Aorta Diam 3.6 cm LA/Ao 0.98 EDV(MOD-sp4) 196.5 ml ESV(MOD-sp4) 64.9 ml EF(MOD-sp4) 67.0 % EDV(MOD-sp2) 216.4 ml ESV(MOD-sp2) 83.4 ml EF(MOD-sp2) 61.4 % SV(MOD-sp4) 131.6 ml SI(MOD-sp4) 59.8 ml/m\S\2 SV(MOD-sp2) 133.0 ml SI(MOD-sp2) 60.4 ml/m\S\2 Doppler Measurements and Calculations MV E max zain 116.5 cm/sec MV A max zain 89.5 cm/sec MV E/A 1.3 MV P1/2t max zain 130.0 cm/sec MV P1/2t 41.7 msec MVA(P1/2t) 5.3 cm\S\2 MV dec slope 912.4 cm/sec\S\2 MV dec time 0.16 sec Ao V2 max 118.5 cm/sec Ao max PG 5.6 mmHg Ao max PG (full) 0.43 mmHg LV V1 max PG 5.2 mmHg LV V1 max 113.9 cm/sec PA V2 max 99.7 cm/sec PA max PG 4.0 mmHg TR max zain 264.9 cm/sec
--- NOTE | 2017-10-05 16:00 | Cardiology Progress Note ---
Cardiology Progress Note Date of Service Oct 05, 2017. Cardiology Progress Note Patient reassessed. Feeling well. Denies chest pain or shortness of breath. He notes no recent increases stressors or anxiety at home or work. He denies illicit drug use, specifically denies cocaine use. Replace potassium. Will proceed with ASA, Statin, metoprolol for PVCs, and amlodipine for empiric treatment of vasospasm. Pt aware he will need to avoid strenuous exercise for a few weeks.
[2017-10-05] MEDS: FINASTERIDE 5 MG TAB PO SCH (16:04)
[2017-10-05 16:10] LABS: CALCIUM 8.4 mg/dl (8.5-10.1); CREATININE 0.92 mg/dl (0.60-1.40)
[2017-10-05 19:00] LABS: POTASSIUM 4.1 mmol/L (3.5-5.1)
[2017-10-05] MEDS ORDERED: GABAPENTIN 600 MG TAB PO SCH (21:00)
[2017-10-05] MEDS ORDERED: DOXEPIN HCL 50 MG CAP PO SCH (21:00)
[2017-10-05] MEDS: METOPROLOL TARTRATE 25 MG TAB PO SCH (21:14)
[2017-10-06 04:34] VITALS: BP 125/72; PULSE 62; TEMP 36.4; O2SAT 97
[2017-10-06 05:14] LABS: BASO % 0.5 %; BASO ABS # 0.04 K/uL (0-0.2); EOS % 1.3 %; HEMOGLOBIN 17.5 g/dL (14.0-18.0); IG# 0.04 K/uL (0.00-0.02); LYMPH % 25.2 %; LYMPH ABS # 1.99 K/uL (1.2-3.4); MEAN CELL VOLUME 94.9 fL (80-100); MEAN CORPUSCULAR HEMOGLOBIN 33.2 pg (25-34); MONO % 11.7 %; MONO ABS # 0.92 K/uL (0.11-0.59); NEUT % 60.8 %; PLATELET COUNT 175 K/uL (130-400); RED CELL DISTRIBUTION WIDTH CV 14.2 % (11.5-14.5); RED CELL DISTRIBUTION WIDTH SD 48.7 fL (36.4-46.3); WHITE BLOOD COUNT 7.89 K/uL (4.8-10.8)
[2017-10-06 05:45] LABS: ALBUMIN 3.4 gm/dl (3.4-5.0); CALCIUM 8.3 mg/dl (8.5-10.1); CREATININE 1.01 mg/dl (0.60-1.40); POTASSIUM 4.2 mmol/L (3.5-5.1)
[2017-10-06 05:53] LABS: TOTAL PROTEIN 6.5 gm/dl (6.4-8.2)
[2017-10-06] MEDS ORDERED: INFLUENZA ADMINISTRATION CHARGE ONE (07:00)
[2017-10-06] MEDS ORDERED: INFLUENZA VIRUS QUAD VACCINE 0.5 ML SYR IM. ONE (07:00)
[2017-10-06 08:00] VITALS: BP 124/65; PULSE 74; TEMP 36.4; O2SAT 95
[2017-10-06] MEDS: PANTOprazole SOD 40 MG TAB PO SCH (08:22)
[2017-10-06] MEDS: ASPIRIN 81 MG ECTAB PO SCH (08:22)
[2017-10-06] MEDS: MULTIVITAMIN TAB PO SCH (08:22)
[2017-10-06] MEDS: METOPROLOL TARTRATE 25 MG TAB PO SCH (08:23)
[2017-10-06] MEDS: FINASTERIDE 5 MG TAB PO SCH (08:24)
[2017-10-06] MEDS ORDERED: AMLODIPINE BESYLATE 5 MG TAB PO SCH (09:00)
[2017-10-06] MEDS ORDERED: ATORVASTATIN 40 MG TAB PO SCH (09:00)
[2017-10-06] MEDS ORDERED: ENOXAPARIN 40 MG/0.4 ML SYR SQ SCH (09:00)
--- NOTE | 2017-10-06 11:53 | CARDIOLOGY PROGRESS NOTE ---
DATE: 10/06/2017 CARDIOLOGY FOLLOWUP SUBJECTIVE: The patient is seen and examined at the bedside. He states he slept well overnight. No recurrent chest discomfort. Denies palpitations. Troponin mildly elevated this morning at 0.253. ECG demonstrates sinus rhythm with ventricular bigeminy and inferior T-wave abnormality. The patient is requesting discharge if possible. Prescribed beta-praful, aspirin, statin therapy, and amlodipine for possible coronary spasm. Reports a longstanding history of premature atrial complexes. Denies history of atrial fibrillation. Testing performed since admission include cardiac catheterization demonstrating essentially normal coronary arteries without atherosclerosis. A CT angiogram was negative for pulmonary embolus. His sedimentation rate was found to be normal without ECG changes to suggest pericarditis/myocarditis. The patient currently pain free. Denies excessive alcohol or caffeine intake at home. Denies any supplement intake or use of over the counter stimulants. Denies any illicit drug use. Offers no other complaints at this time. REVIEW OF SYSTEMS: The pertinent positives noted above and a 4-system review including cardiovascular, pulmonary, gastroenterologic, and neurologic systems otherwise negative. MEDICATIONS: Reviewed via EMR. Please see list for details. LABORATORY DATA: Sodium 136, potassium 4.2, chloride is 105, CO2 is 26, BUN is 13, creatinine is 1.01. LDL 116, HDL is 51. White blood cell count 7.89, hemoglobin is 17.5, and platelet count is 175. INR is 1.0. D-dimer is negative. IMAGING DATA: Telemetry demonstrates sinus rhythm, premature ventricular complexes, ventricular bigeminy. PHYSICAL EXAMINATION: VITAL SIGNS: Temperature is 36.4 degrees centigrade, pulse 74 beats per minute and regular, respiratory rate is 12 breaths per minute, blood pressure 124/65, and SA02 is 95% on room air. GENERAL: NAD, awake, alert and oriented x3. THROAT: His mucous membranes are moist. No scleral icterus. Conjunctivae pink. NECK: Supple. There is no JVD, no HJR, no carotid bruit. HEART: Regular with occasional ectopy. There is no murmur, rub, or gallop. LUNGS: Clear without rales, rhonchi or wheeze. ABDOMEN: Soft, nontender. No rebound or guarding. Normal bowel sounds. EXTREMITIES: Warm and dry without clubbing, cyanosis, or edema. Distal pulses are palpable. NEUROLOGIC: Demonstrates no focal deficit. FINAL IMPRESSION: 1. A 57-year-old male admitted with non-ST elevation myocardial infarction, elevated troponin and chest discomfort. Catheterization demonstrated essentially normal coronary arteries without significant atherosclerosis. Etiology of elevated troponin unclear with negative CT angiogram, normal echocardiogram, and normal ESR. Currently, patient is asymptomatic with telemetry evidence of frequent premature ventricular contractions. Potential etiologies of elevated troponin include coronary vasospasm, transient plaque rupture with spontaneous recannulization, and/or cardioembolic event with undiagnosed atrial fibrillation. 2. Preserved left ventricular systolic function without regional wall motion abnormality. 3. Frequent premature ventricular contractions. 4. History premature atrial contractions. PLAN AND RECOMMENDATIONS: I had a long discussion with the patient at bedside regarding his elevated troponins, current cardiac workup which has been unremarkable thus far. The potential etiologies were reviewed at length. The patient voiced understanding. 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 We discussed the addition of Plavix for 3 months as well given his low bleeding risk and potential benefit. The patient is agreeable to begin Plavix. A repeat troponin will be performed this a.m. I have also ordered a serum magnesium level given frequent PVCs. Repeat ECG will be performed when the patient is not in bigeminy. Other cardiovascular medications including beta-praful and statin therapy will be continued as previously ordered. Will arrange for close follow up with Dr. Soto in the outpatient setting. Possible discharge this afternoon pending review of followup testing. Thank you for allowing me to participate in the care of your patient. KELSIE
[2017-10-06 12:00] VITALS: BP 108/61; PULSE 68; TEMP 36.5; O2SAT 95
[2017-10-06] MEDS ORDERED: CLOPIDOGREL BISULFATE 75 MG TAB PO ONE (12:00)
--- NOTE | 2017-10-06 12:05 | Progress Note ---
Internal Med Progress Note Date of Service: Oct 06, 2017. Provider Documentation: SUBJECTIVE: The patient was seen and examined Pt's presenting symptom was profound chest pressure , shortness of breath, like he was going to suffocate. S/P Negative cardiac Cath Denies any symptoms since admission Has Bad Reflux disease OBJECTIVE: Vital Signs-as noted below Exam: General-No distress at rest Eyes-normal ENT-normal Neck-supple Lungs-clear to ausucltate bilaterally Heart-Regular,no murmur Abdomen-Benign,no masses Extremities-NO edema Neuro-AAOx3 Lab data as noted below. ASSESSMENT & PLAN: 57 yo M with out h/o CAD, nonsmoker with early family heart disease presents with Pt's presenting symptom was profound chest pressure , shortness of breath, like he was going to suffocate. NSTEMI-in the setting of increased Troponin CTA-negative for any Dissection and or Pulmonary Embolism Started on Heparin drip, Lip 80, ASA, Metoprolol 12.5 BID added. Ativan PRN for anxiety. Cards consult. S/P Negative Cardiac cath ECHO;; * Sinus rhythm with frequent PVCs noted during the echocardiogram. * The left ventricular wall motion is normal. * Left ventricular systolic function is normal. * The LV Ejection Fraction = 55-60%. * There is trace mitral regurgitation. * Doppler findings do not suggest pulmonary hypertension. * There is no pericardial effusion. Appreciate cardiology input May has had Coronary Spasm Has been on BB and Amlodipine and Plavix Clinically stable with asymptomatic Bigemini GERD-controlled on PPI and H2 praful Has h/o sylvia esophagitis in distant past. Reports recent EGD 4 years ago was normal. Alopecia-finasteride DVT proph-was on heparin drip Now On Lovenox Full Code DISPOSITION Likely to be discharged in a day or two Vital Signs: Date Time Temp Pulse Resp B/P (MAP) Pulse Ox O2 Delivery O2 Flow Rate FiO2 10/06/17 08:00 36.4 74 29 124/65 (84) 95 Room Air 10/06/17 08:00 Room Air 10/06/17 04:34 36.4 62 12 125/72 (89) 97 Room Air 10/06/17 04:00 Room Air 10/06/17 00:00 Room Air 10/05/17 23:55 36.5 61 14 137/71 (93) 96 Room Air 10/05/17 20:10 36.5 66 18 117/77 (90) 96 Room Air 10/05/17 20:00 Room Air 10/05/17 16:00 95 Room Air 10/05/17 16:00 36.8 49 14 110/75 (87) 93 Room Air 10/05/17 13:46 66 21 124/79 (94) 95 Room Air 10/05/17 13:16 65 15 136/89 (105) 95 Room Air 10/05/17 13:01 36.8 64 18 122/85 95 Room Air 10/05/17 12:47 60 25 114/79 (91) 95 Room Air 10/05/17 12:38 60 25 122/85 (97) 96 Room Air 10/05/17 12:30 67 16 112/60 (77) 97 Room Air 6 10/05/17 12:15 68 16 120/64 (82) 97 Room Air 6 10/05/17 12:00 68 16 119/64 (82) 97 Room Air 6 Lab Results: Results Past 24 Hours Test 10/05/17 15:24 10/06/17 04:59 10/06/17 10:38 Range/Units Sodium Level 136 136 136-145 mmol/L Potassium Level 4.1 4.2 3.5-5.1 mmol/L Chloride Level 102 105 98-107 mmol/L Carbon Dioxide Level 29 26 21-32 mmol/L Anion Gap 5.0 5.0 3-11 mmol/L Blood Urea Nitrogen 17 13 7-18 mg/dl Creatinine 0.92 1.01 0.60-1.40 mg/dl Est Creatinine Clear Calc Drug Dose 105.1 95.8 ml/min Estimated GFR () 105.9 94.6 Estimated GFR (Non- 91.4 81.6 BUN/Creatinine Ratio 18.0 13.2 10-20 Random Glucose 109 111 70-99 mg/dl Calcium Level 8.4 8.3 8.5-10.1 mg/dl Troponin I 0.205 0.253 0-0.045 ng/ml White Blood Count 7.89 4.8-10.8 K/uL Red Blood Count 5.27 4.7-6.1 M/uL Hemoglobin 17.5 14.0-18.0 g/dL Hematocrit 50.0 42-52 % Mean Corpuscular Volume 94.9 80-100 fL Mean Corpuscular Hemoglobin 33.2 25-34 pg Mean Corpuscular Hemoglobin Concent 35.0 32-36 g/dl Platelet Count 175 130-400 K/uL Mean Platelet Volume 11.0 7.4-10.4 fL Neutrophils (%) (Auto) 60.8 % Lymphocytes (%) (Auto) 25.2 % Monocytes (%) (Auto) 11.7 % Eosinophils (%) (Auto) 1.3 % Basophils (%) (Auto) 0.5 % Neutrophils # (Auto) 4.80 1.4-6.5 K/uL Lymphocytes # (Auto) 1.99 1.2-3.4 K/uL Monocytes # (Auto) 0.92 0.11-0.59 K/uL Eosinophils # (Auto) 0.10 0-0.5 K/uL Basophils # (Auto) 0.04 0-0.2 K/uL RDW Standard Deviation 48.7 36.4-46.3 fL RDW Coefficient of Variation 14.2 11.5-14.5 % Immature Granulocyte % (Auto) 0.5 % Immature Granulocyte # (Auto) 0.04 0.00-0.02 K/uL Total Bilirubin 0.5 0.2-1 mg/dl Aspartate Amino Transf (AST/SGOT) 18 15-37 U/L Alanine Aminotransferase (ALT/SGPT) 26 12-78 U/L Alkaline Phosphatase 39 45-117 U/L Total Protein 6.5 6.4-8.2 gm/dl Albumin 3.4 3.4-5.0 gm/dl Globulin 3.1 2.5-4.0 gm/dl Albumin/Globulin Ratio 1.1 0.9-2 Triglycerides Level 147 0-150 mg/dl Cholesterol Level 196 0-200 mg/dl HDL Cholesterol 51 mg/dl LDL Cholesterol, Calculated 116 mg/dl VLDL Cholesterol, Calculated 29 mg/dl Cholesterol/HDL Ratio 3.8
[2017-10-06] MEDS ORDERED: LPR25 PO (14:56)
[2017-10-06] MEDS ORDERED: LPT40 PO (14:56)
[2017-10-06] MEDS ORDERED: PLV75 PO (14:56)
[2017-10-06] MEDS ORDERED: NTRSLP4 SL (14:56)
[2017-10-06] MEDS ORDERED: NRV5 PO (14:56)
--- NOTE | 2017-10-06 14:59 | Discharge Instructions ---
Discharge Instructions Date of Service Oct 06, 2017. Admission Reason for Admission: Nstemi Discharge Discharge Diagnosis / Problem: NSTEMI,Negative Cardiac Cath,Bigemini/frequent PVCs Discharge Goals Goal(s): Prevent Disease Progression Activity Recommendations Activity Limitations: resume your previous activity . Instructions / Follow-Up Instructions / Follow-Up Please make an appointment with your PCP in 1 week and Hematology Oncology Consultant in 1 -2 weeks Current Hospital Diet Patient's current hospital diet: AHA Diet (Heart Healthy) Discharge Diet Recommended Diet: AHA Diet (Heart Healthy), Low Sodium Diet (2gm Na) Pending Studies Studies pending at discharge: no Laboratory Results Lipid Panel Test 10/06/17 04:59 Range/Units Triglycerides Level 147 0-150 mg/dl Cholesterol Level 196 0-200 mg/dl HDL Cholesterol 51 mg/dl Cholesterol/HDL Ratio 3.8 LDL Cholesterol, Calculated 116 mg/dl Medical Emergencies . Who to Call and When: Medical Emergencies: If at any time you feel your situation is an emergency, please call 911 immediately. . Non-Emergent Contact Non-Emergency issues call your: Primary Care Provider . Past History Medical & Surgical History: (1) GERD (gastroesophageal reflux disease) (2) NSTEMI (non-ST elevated myocardial infarction) (3) Lumbar stenosis (4) Previous back surgery . "Provider Documentation" section prepared by Umm Goss. . VTE Core Measure Inpt VTE Proph given/why not?: Other Anticoagulation
[2017-10-06] MEDS ORDERED: ASPEC81 PO (15:07)
[2017-10-06 15:14] VITALS: BP 108/61; PULSE 68; TEMP 36.5; O2SAT 95
--- NOTE | 2017-10-06 17:45 | Discharge Summary ---
Discharge Summary Date of Service Oct 06, 2017. Discharge Summary Admission Date: Oct 05, 2017 at 04:48 Discharge Date: Oct 06, 2017 Discharge Disposition: Home Principal Diagnosis: NSTEMI,Negative Cardiac Cath,Bigemini/frequent PVCs Secondary Diagnoses/Problems: Please see H&P and Hospital progress note Consultations: Cardiology Medication Reconciliation New Medications: Amlodipine Besylate (Amlodipine Besylate) 5 Mg Tab 2.5 MG PO QAM for 30 Days, #15 TAB Aspirin (Aspirin EC Low Dose) 81 Mg Ectab 81 MG PO QAM for 30 Days, #30 Atorvastatin (Lipitor) 40 Mg Tab 40 MG PO QAM for 30 Days, #30 TAB Clopidogrel Bisulfate (Clopidogrel) 75 Mg Tab 75 MG PO QAM for 30 Days, #30 TAB Metoprolol Tartrate (Lopressor) 25 Mg Tab 25 MG PO BID for 30 Days, #60 TAB Nitroglycerin (Nitrostat) 0.4 Mg/1 Tab Subl 0.4 MG SL UD PRN for Chest Pain for 30 Days, #25 Continued Medications: Cetirizine Hcl (Zyrtec) 10 Mg Tab 1 TAB PO DAILY for Seasonal Allergies for 30 Days, #30 TAB 5 Refills Doxepin Hcl (Doxepin) 100 Mg Cap 50 MG PO QPM PRN for Sleep, CAP Esomeprazole Magnesium (Nexium) 40 Mg Capcr 40 MG PO DAILY, CAP Finasteride (Proscar) 5 Mg Tab 5 MG PO DAILY, TAB Gabapentin (Neurontin) 600 Mg Tab 600 MG PO HS, TAB Multivitamin (Multivitamin) Tab 1 TAB PO DAILY, TAB Ranitidine (Zantac) 150 Mg Tab 150-300 MG PO DAILY, TAB Testosterone Cypionate (Testosterone Cypionate) 200 Mg/Ml Inj 200 MG IM [id number] Valacyclovir Hcl (Valtrex) 500 Mg Tab 1000 MG PO DAILY PRN for as directed for 30 Days, #60 TAB 11 Refills Admission Information HPI (per Admitting provider): 57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 He works out daily and has no issues. He has an early family h/o heart disease in his brother who received a stent at 50 yrs old. He has no HTN and is otherwise healthy. He denies any recent issues with SOB. He admits to the pain waking him up from sleep and feels like he was suffocating. His noted an irregular heart rate and on his EKG there were frequent PVCs noted. He is an avid caffeine user. He reports feeling very panicky because he realized he make be having an [place] and took one of his 's Lopressor (50mg) which made him feel somewhat better. He denies associated symptoms with the pain but this is unclear because of how panicked he became. In the ER he was given ASA 324, Viscous lidocaine, Maalox and Ativan and states this all tok his chest pressure from a 10 to a 1 now. Workup reveals no ST changes on EKG and an elevated trop at 0.19. He was started on a heparin drip. Past Medical/Surgical History Medical Problems: (1) GERD (gastroesophageal reflux disease) Status: Chronic (2) Low testosterone Status: Chronic (3) Lumbar stenosis Status: Chronic Surgical Problems: (1) Previous back surgery Status: Resolved Family History Diabetes mellitus Heart disease Hypertension Social History Smoking Status: Never Smoker Smokeless Tobacco Use: No Alcohol Use: socially Drug Use: none Marital Status: Occupational Status: employed Immunizations History of Influenza Vaccine: Unknown History of Tetanus Vaccine?: Unknown History of Pneumococcal: Unknown History of Hepatitis B Vaccine: Unknown Multi-Drug Resistant Organisms History of MDRO: No Allergies Coded Allergies: No Known Allergies (Unverified , 02/27/07) Home Medications Scheduled Cetirizine Hcl (Zyrtec), 1 TAB PO DAILY Esomeprazole Magnesium (Nexium), 40 MG PO DAILY Finasteride (Proscar), 5 MG PO DAILY Gabapentin (Neurontin), 600 MG PO HS Multivitamin (Multivitamin), 1 TAB PO DAILY Ranitidine (Zantac), 150-300 MG PO DAILY Testosterone Cypionate (Testosterone Cypionate), 200 MG IM [id number] Scheduled PRN Doxepin Hcl (Doxepin), 50 MG PO QPM PRN for Sleep Valacyclovir Hcl (Valtrex), 1,000 MG PO DAILY PRN for as directed Review of Systems At least ten systems were reviewed and negative except as indicated in HPI above. Physical Ex - H&P Physical Exam Vital Signs Date Time Temp Pulse Resp B/P (MAP) Pulse Ox O2 Delivery O2 Flow Rate FiO2 10/05/17 06:37 66 19 121/66 95 Room Air 10/05/17 06:00 62 102/68 10/05/17 05:28 64 10/05/17 04:15 62 19 102/98 97 Nasal Cannula 2.0 10/05/17 03:33 67 123/70 96 Nasal Cannula 2.0 10/05/17 02:52 97 Nasal Cannula 2.0 10/05/17 02:42 66 19 122/72 98 Nasal Cannula Free Flow/[place] 10/05/17 02:02 63 20 139/83 93 Room Air 10/05/17 01:38 71 22 139/83 97 Room Air 10/05/17 01:38 97 Room Air 10/05/17 01:30 71 10/05/17 01:20 36.6 59 16 136/85 96 Room Air General Appearance: WD/WN, + mild distress (emotional distress), + pertinent finding (talkative) Head: normocephalic, atraumatic Eyes: normal inspection, PERRL, sclerae normal ENT: normal ENT inspection, hearing grossly normal, pharynx normal, + pertinent finding (MMM) Neck: supple, no adenopathy, trachea midline Respiratory/Chest: lungs clear, normal breath sounds, no respiratory distress, no accessory muscle use Cardiovascular: regular rate, rhythm, no edema, no gallop, no JVD, no murmur, normal peripheral pulses Abdomen/GI: normal bowel sounds, non tender, soft, no organomegaly Back: normal inspection Extremities/Musculoskelatal: normal inspection Neurologic/Psych: chargemaster specialist II-XII nml as tested, no motor/sensory deficits, alert, normal mood/affect, oriented x 3 Skin: normal color, warm/dry Diagnostics - H&P Diagnostics Laboratory Results 10/05/17 01:44 Red Blood Count 4.93, Mean Corpuscular Volume 95.3, Mean Corpuscular Hemoglobin 33.3, Mean Corpuscular Hemoglobin Concent 34.9, Mean Platelet Volume 11.2, Neutrophils (%) (Auto) 56.5, Lymphocytes (%) (Auto) 30.7, Monocytes (%) (Auto) 10.0, Eosinophils (%) (Auto) 2.1, Basophils (%) (Auto) 0.6, Neutrophils # (Auto ) 3.95, Lymphocytes # (Auto) 2.15, Monocytes # (Auto) 0.70, Eosinophils # (Auto ) 0.15, Basophils # (Auto) 0.04 10/05/17 01:44 Test 10/05/17 01:44 10/05/17 03:47 10/05/17 09:25 10/05/17 09:42 White Blood Count 7.00 K/uL (4.8-10.8) Red Blood Count 4.93 M/uL (4.7-6.1) Hemoglobin 16.4 g/dL (14.0-18.0) Hematocrit 47.0 % (42-52) Mean Corpuscular Volume 95.3 fL (80-100) Mean Corpuscular Hemoglobin 33.3 pg (25-34) Mean Corpuscular Hemoglobin Concent 34.9 g/dl (32-36) Platelet Count 192 K/uL (130-400) Mean Platelet Volume 11.2 fL (7.4-10.4) Neutrophils (%) (Auto) 56.5 % Lymphocytes (%) (Auto) 30.7 % Monocytes (%) (Auto) 10.0 % Eosinophils (%) (Auto) 2.1 % Basophils (%) (Auto) 0.6 % Neutrophils # (Auto) 3.95 K/uL (1.4-6.5) Lymphocytes # (Auto) 2.15 K/uL (1.2-3.4) Monocytes # (Auto) 0.70 K/uL (0.11-0.59) Eosinophils # (Auto) 0.15 K/uL (0-0.5) Basophils # (Auto) 0.04 K/uL (0-0.2) RDW Standard Deviation 48.9 fL (36.4-46.3) RDW Coefficient of Variation 14.2 % (11.5-14.5) Immature Granulocyte % (Auto) 0.1 % Immature Granulocyte # (Auto) 0.01 K/uL (0.00-0.02) Prothrombin Time 10.1 SECONDS (9.0-12.0) Prothromb Time International Ratio 1.0 (0.9-1.1) Activated Partial Thromboplast Time 24.5 SECONDS (21.0-31.0) Partial Thromboplastin Ratio 0.9 D-Dimer 260 ug/L FEU (0-500) Anion Gap 11.0 mmol/L (3-11) Est Creatinine Clear Calc Drug Dose 90.8 ml/min Estimated GFR () 88.2 Estimated GFR (Non- 76.1 BUN/Creatinine Ratio 18.7 (10-20) Calcium Level 8.1 mg/dl (8.5-10.1) Total Bilirubin 0.3 mg/dl (0.2-1) Direct Bilirubin mg/dl (0-0.2) Aspartate Amino Transf (AST/SGOT) 29 U/L (15-37) Alanine Aminotransferase (ALT/SGPT) 35 U/L (12-78) Alkaline Phosphatase 47 U/L (45-117) Total Protein 6.5 gm/dl (6.4-8.2) Albumin 3.4 gm/dl (3.4-5.0) Thyroid Stimulating Hormone (TSH) 1.810 uIu/ml (0.300-4.500) Chemistry Specimen Hemolysis Total Creatine Kinase 310 U/L (39-308) Creatine Kinase MB 4.0 ng/ml (0.5-3.6) Creatine Kinase MB Ratio 1.3 (0-3.0) Bedside Troponin I 0.060 ng/ml (0-0.045) Troponin I 0.203 ng/ml (0-0.045) Results Past 24 Hours Test 10/05/17 01:44 10/05/17 01:51 10/05/17 03:47 Range/Units White Blood Count 7.00 4.8-10.8 K/uL Red Blood Count 4.93 4.7-6.1 M/uL Hemoglobin 16.4 14.0-18.0 g/dL Hematocrit 47.0 42-52 % Mean Corpuscular Volume 95.3 80-100 fL Mean Corpuscular Hemoglobin 33.3 25-34 pg Mean Corpuscular Hemoglobin Concent 34.9 32-36 g/dl Platelet Count 192 130-400 K/uL Mean Platelet Volume 11.2 7.4-10.4 fL Neutrophils (%) (Auto) 56.5 % Lymphocytes (%) (Auto) 30.7 % Monocytes (%) (Auto) 10.0 % Eosinophils (%) (Auto) 2.1 % Basophils (%) (Auto) 0.6 % Neutrophils # (Auto) 3.95 1.4-6.5 K/uL Lymphocytes # (Auto) 2.15 1.2-3.4 K/uL Monocytes # (Auto) 0.70 0.11-0.59 K/uL Eosinophils # (Auto) 0.15 0-0.5 K/uL Basophils # (Auto) 0.04 0-0.2 K/uL RDW Standard Deviation 48.9 36.4-46.3 fL RDW Coefficient of Variation 14.2 11.5-14.5 % Immature Granulocyte % (Auto) 0.1 % Immature Granulocyte # (Auto) 0.01 0.00-0.02 K/uL Prothrombin Time 10.1 9.0-12.0 SECONDS Prothromb Time International Ratio 1.0 0.9-1.1 Activated Partial Thromboplast Time 24.5 21.0-31.0 SECONDS Partial Thromboplastin Ratio 0.9 D-Dimer 260 0-500 ug/L FEU Sodium Level 137 136-145 mmol/L Potassium Level 3.5 3.5-5.1 mmol/L Chloride Level 102 98-107 mmol/L Carbon Dioxide Level 24 21-32 mmol/L Anion Gap 11.0 3-11 mmol/L Blood Urea Nitrogen 20 7-18 mg/dl Creatinine 1.07 0.60-1.40 mg/dl Est Creatinine Clear Calc Drug Dose 90.8 ml/min Estimated GFR () 88.2 Estimated GFR (Non- 76.1 BUN/Creatinine Ratio 18.7 10-20 Random Glucose 115 70-99 mg/dl Calcium Level 8.1 8.5-10.1 mg/dl Total Bilirubin 0.3 0.2-1 mg/dl Direct Bilirubin 0-0.2 mg/dl Aspartate Amino Transf (AST/SGOT) 29 15-37 U/L Alanine Aminotransferase (ALT/SGPT) 35 12-78 U/L Alkaline Phosphatase 47 45-117 U/L Total Protein 6.5 6.4-8.2 gm/dl Albumin 3.4 3.4-5.0 gm/dl Thyroid Stimulating Hormone (TSH) 1.810 0.300-4.500 uIu/ml Chemistry Specimen Hemolysis Bedside Troponin I 0.050 0-0.045 ng/ml Total Creatine Kinase 310 39-308 U/L Creatine Kinase MB 4.0 0.5-3.6 ng/ml Creatine Kinase MB Ratio 1.3 0-3.0 Troponin I 0.194 0-0.045 ng/ml Diagnostic Radiology CHEST ONE VIEW PORTABLE HISTORY: 57 years-old Male chest heavy acute chest heaviness COMPARISON: None available TECHNIQUE: AP view of the chest FINDINGS: Cardiac silhouette is mildly enlarged. No pneumothorax, pleural effusion or overt pulmonary edema. Linear subsegmental left basilar opacities suggest atelectasis. No lobar airspace consolidation to suggest pneumonia. The bones of the chest appear grossly intact. IMPRESSION: No acute process. EKG sinus rhythm, frequent PVCs. Impression - H&P Impression Assessment and Plan 57 yo M with out h/o CAD, nonsmoker with early family heart disease presents with acute chest pain. 1. NSTEMI-heparin drip, Lip 80, ASA, Metoprolol 12.5 BID added. Ativan PRN for anxiety. Cards consult. Trend trops. Lipids ordered. Monitor on telemetry. Defer TTE order to them. 2. GERD-controlled on PPI. Has h/o sylvia esophagitis in distant past. Reports recent EGD 4 years ago was normal. 3. Alopecia-finasteride DVT proph-heparin drip Full Code Dispo-to telemetry for cardiac evaluation. Silke Medina DO [facility] Level of Care Telemetry Resuscitation Status FULL RESUSCITATION VTE Prophylaxis VTE Risk Assessment Done? Y/N: Yes Risk Level: Moderate Given or contraindicated: Other Anticoagulation Physical Exam (per Admitting): General Appearance: WD/WN, + mild distress (emotional distress), + pertinent finding (talkative) Head: normocephalic, atraumatic Eyes: normal inspection, PERRL, sclerae normal ENT: normal ENT inspection, hearing grossly normal, pharynx normal, + pertinent finding (MMM) Neck: supple, no adenopathy, trachea midline Respiratory/Chest: lungs clear, normal breath sounds, no respiratory distress, no accessory muscle use Cardiovascular: regular rate, rhythm, no edema, no gallop, no JVD, no murmur , normal peripheral pulses Abdomen/GI: normal bowel sounds, non tender, soft, no organomegaly Back: normal inspection Extremities/Musculoskelatal: normal inspection Neurologic/Psych: chargemaster specialist II-XII nml as tested, no motor/sensory deficits, alert , normal mood/affect, oriented x 3 Skin: normal color, warm/dry Hospital Course 57 yo M with out h/o CAD, nonsmoker with early family heart disease presents with Pt's presenting symptom was profound chest pressure , shortness of breath, like he was going to suffocate. NSTEMI-in the setting of increased Troponin CTA-negative for any Dissection and or Pulmonary Embolism Started on Heparin drip, Lip 80, ASA, Metoprolol 12.5 BID added. Ativan PRN for anxiety. Cards consult. S/P Negative Cardiac cath ECHO;; * Sinus rhythm with frequent PVCs noted during the echocardiogram. * The left ventricular wall motion is normal. * Left ventricular systolic function is normal. * The LV Ejection Fraction = 55-60%. * There is trace mitral regurgitation. * Doppler findings do not suggest pulmonary hypertension. * There is no pericardial effusion. Appreciate cardiology input May has had Coronary Spasm Has been on BB and Amlodipine and Plavix Clinically stable with asymptomatic Bigemini GERD-controlled on PPI and H2 praful Has h/o sylvia esophagitis in distant past. Reports recent EGD 4 years ago was normal. Alopecia-finasteride DVT proph-was on heparin drip Now On Lovenox Full Code DISPOSITION Likely to be discharged in a day or two Total time spent on discharge = 35 minutes This includes examination of the patient, discharge planning, medication reconciliation, and communication with other providers. Discharge Instructions Date of Service Oct 06, 2017. Admission Reason for Admission: Nstemi Discharge Discharge Diagnosis / Problem: NSTEMI,Negative Cardiac Cath,Bigemini/frequent PVCs Discharge Goals Goal(s): Prevent Disease Progression Activity Recommendations Activity Limitations: resume your previous activity . Instructions / Follow-Up Instructions / Follow-Up Please make an appointment with your PCP in 1 week and Running Rigger in 1 -2 weeks Current Hospital Diet Patient's current hospital diet: AHA Diet (Heart Healthy) Discharge Diet Recommended Diet: AHA Diet (Heart Healthy), Low Sodium Diet (2gm Na) Pending Studies Studies pending at discharge: no Laboratory Results Lipid Panel Test 10/06/17 04:59 Range/Units Triglycerides Level 147 0-150 mg/dl Cholesterol Level 196 0-200 mg/dl HDL Cholesterol 51 mg/dl Cholesterol/HDL Ratio 3.8 LDL Cholesterol, Calculated 116 mg/dl Medical Emergencies . Who to Call and When: Medical Emergencies: If at any time you feel your situation is an emergency, please call 911 immediately. . Non-Emergent Contact Non-Emergency issues call your: Primary Care Provider . Past History Medical & Surgical History: (1) GERD (gastroesophageal reflux disease) (2) NSTEMI (non-ST elevated myocardial infarction) (3) Lumbar stenosis (4) Previous back surgery . "Provider Documentation" section prepared by Umm Goss. . VTE Core Measure Inpt VTE Proph given/why not?: Other Anticoagulation <Electronically signed by Umm Goss M.D.> Signed: 10/06/17 [id number] Additional Copies To Jerry Davis M.D.
[2017-10-07] MEDS ORDERED: CLOPIDOGREL BISULFATE 75 MG TAB PO SCH (09:00)
== END 2017-10-06 15:20 | disposition home or self-care (01) | DRG 282 ==
LOC: C.EDB 01:17 → C.MSICU 04:48 → EDBEDREQ 04:49 → ENRESERV 08:06 → CANRESERV 08:06 → C.MSICU 09:45 → ENRESERV 12:02
PROVIDERS: ADMIT Hospitalist; ATTEND Internal Medicine
PROC: B210YZZ Fluoroscopy of Single Coronary Artery using Other Contrast (ICD-10-PCS; principal; 2017-10-05 09:31)
PROC: 4A023N7 Measurement of Cardiac Sampling and Pressure, Left Heart, Percutaneous Approach (ICD-10-PCS; principal; 2017-10-05 09:31)
DX: I21.4 Non-ST elevation (NSTEMI) myocardial infarction (principal); K21.9 Gastro-esophageal reflux disease without esophagitis; L65.9 Nonscarring hair loss, unspecified; I49.3 Ventricular premature depolarization; I25.2 Old myocardial infarction; Z83.3 Family history of diabetes mellitus; Z82.49 Family history of ischemic heart disease and other diseases of the circulatory system